=== PATIENT | female | born 1980 | race Caucasian/White ===

== ENCOUNTER → 2017-10-09 | Outpatient (CLI) | payer SELFPAY ==
--- NOTE | 2017-10-09 12:04 | Diagnostic Imaging Report ---
PROCEDURE: US left lower extremity venous. TECHNIQUE: Multiple real-time grayscale images were obtained over the left lower extremity in various projections. Additional duplex Doppler and color Doppler images were also obtained. INDICATION: Left leg swelling and redness. FINDINGS: There is no evidence of a left lower extremity DVT. Left lower extremity deep venous system demonstrates normal compressibility, normal response to augmentation and Valsalva. There are some superficial varicosities present but no evidence of superficial thrombophlebitis is seen. No fluid collection is seen. IMPRESSION: No evidence of left lower extremity DVT. Dictated by: Dictated on workstation # [id number]
== END ==
LOC: RAD 10:26
PROVIDERS: ATTEND Family Medicine
DX: M79.89 Other specified soft tissue disorders (principal)